=== PATIENT | male | born 1990 | race Caucasian/White ===

== ENCOUNTER 2019-05-29 15:38 | Observation (INO) ==
[2019-05-29] MEDS ORDERED: Ondansetron 4 MG/2 ML VIAL IVP PRN (17:52)
[2019-05-29] MEDS ORDERED: Naloxone 0.4 MG/ML INJ IVP PRN (17:52)
[2019-05-29] MEDS: 0.9 % Sodium Chloride 1,000 ML IVC SCH (18:15)
[2019-05-29] MEDS: *HR* Heparin 5,000 UNIT/ML VIAL SQ SCH (18:16)
[2019-05-29] MEDS: MetroNIDAZOLE 500 MG/100 ML 500 MG/100 ML BAG IVPB SCH (21:11)
[2019-05-30] MEDS: MetroNIDAZOLE 500 MG/100 ML 500 MG/100 ML BAG IVPB SCH ×5 (00:25→23:10)
[2019-05-30 02:51] LABS: Basophils # 0.1 K/mcL (0.0-0.2); Basophils % 0.6 %; Eosinophils # 0.4 K/mcL (0.0-0.6); Eosinophils % 3.1 %; Hematocrit 39.3 % (37.5-50.1); Hemoglobin 13.6 g/dL (12.9-16.9); Immature Granulocytes % 0.3 % (0-4); Lymphocytes # 2.2 K/mcL (0.6-4.6); Lymphocytes % 18.8 %; Mean Corpuscular HGB Conc 34.6 g/dL (31.6-35.5); Mean Corpuscular Hemoglobin 30.3 pg (28.0-33.3); Mean Corpuscular Volume 87.5 fL (83.0-100.0); Mean Platelet Volume 10.5 fL (9.4-12.4); Monocytes # 1.2 K/mcL (0.0-1.3); Monocytes % 10.5 %; Neutrophils # 7.6 K/mcL (1.6-8.9); Platelet Count 244 K/mcL (140-400); Red Blood Count 4.49 M/mcL (4.19-5.50); Red Cell Distribution Width 12.1 % (11.5-14.5); Segmented Neutrophils % 66.7 %; White Blood Count 11.5 K/mcL (4.3-11.1)
[2019-05-30 03:08] LABS: BUN/Creatinine Ratio 15 (6-26); Blood Urea Nitrogen 11 mg/dL (6-20); Calcium 8.5 mg/dL (8.6-10.3); Carbon Dioxide 24 mEq/L (23-29); Chloride 107 mEq/L (98-107); Glucose 88 mg/dL (70-105); Magnesium 1.8 mg/dL (1.6-2.6); Osmolality,Calculated 283 (280-300); Phosphorous 2.5 mg/dL (2.7-4.5); Potassium 3.6 mEq/L (3.5-5.1); Sodium 137 mEq/L (136-145); eGFR For African Americans > 60 (> 60); eGFR For Non-African Americans > 60 (> 60)
[2019-05-30] MEDS: 0.9 % Sodium Chloride 1,000 ML IVC SCH ×2 (04:46→19:38)
[2019-05-30] MEDS: *HR* Heparin 5,000 UNIT/ML VIAL SQ SCH ×2 (05:30→18:27)
[2019-05-30] MEDS ORDERED: Isovue-370 500 ML BOTTLE IVP ONE (10:05)
[2019-05-30] MEDS: Nicotine 21 MG PATCH.TD24 TD SCH (16:12)
[2019-05-31 02:51] LABS: Hematocrit 39.1 % (37.5-50.1); Hemoglobin 13.7 g/dL (12.9-16.9); Mean Corpuscular Hemoglobin 30.2 pg (28.0-33.3); Mean Corpuscular Volume 86.1 fL (83.0-100.0); Mean Platelet Volume 10.9 fL (9.4-12.4); Platelet Count 267 K/mcL (140-400); Red Blood Count 4.54 M/mcL (4.19-5.50); Red Cell Distribution Width 11.9 % (11.5-14.5); White Blood Count 10.6 K/mcL (4.3-11.1)
[2019-05-31] MEDS: *HR* Heparin 5,000 UNIT/ML VIAL SQ SCH ×2 (04:53→18:32)
[2019-05-31] MEDS: MetroNIDAZOLE 500 MG/100 ML 500 MG/100 ML BAG IVPB SCH (04:56)
[2019-05-31] MEDS: Nicotine 21 MG PATCH.TD24 TD SCH (08:59)
[2019-05-31] MEDS: 0.9 % Sodium Chloride 1,000 ML IVC SCH (09:00)
[2019-05-31] MEDS: metroNIDAZOLE 500 MG TABLET PO SCH ×3 (09:06→20:27)
[2019-06-01] MEDS: *HR* Heparin 5,000 UNIT/ML VIAL SQ SCH (05:22)
[2019-06-01 06:21] VITALS: BP 121/67
[2019-06-01] MEDS: Nicotine 21 MG PATCH.TD24 TD SCH (09:06)
[2019-06-01] MEDS: metroNIDAZOLE 500 MG TABLET PO SCH (09:07)
== END 2019-06-01 09:39 | disposition home or self-care (01) ==
LOC: 3ANU → SUATTDRO 16:37
PROVIDERS: ADMIT Internal Medicine; ATTEND Internal Medicine